=== PATIENT | male | born 2000 | race American Indian/Alaskan Native ===

== ENCOUNTER 2020-02-07 12:17 | Emergency (ER) | payer OTHER ==
[~2020-02-07] VITALS: Ht 170.2 cm; Wt 99.8 kg
[~2020-02-07 12:17] MED LIST: ALLEGRA-D 24 H1 EACH PO
== END 2020-02-07 13:54 | disposition home or self-care (01) ==
LOC: ED 12:17
DX: S61.012A Laceration without foreign body of left thumb without damage to nail, initial encounter (principal); W26.0XXA Contact with knife, initial encounter
CPT/HCPCS: 12001; 90471; 90715; 99282-25

== ENCOUNTER 2020-02-10 15:29 | Emergency (ER) | payer OTHER ==
[~2020-02-10] VITALS: Ht 170.2 cm; Wt 99.8 kg
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
== END 2020-02-10 16:19 | disposition home or self-care (01) ==
LOC: ED 15:29
DX: S61.012D Laceration without foreign body of left thumb without damage to nail, subsequent encounter (principal); W26.0XXD Contact with knife, subsequent encounter
CPT/HCPCS: 99282